=== PATIENT | male | born 1995 | race African-American/Black ===

== ENCOUNTER 2019-01-26 21:00 | Emergency (ER) | payer BC, OTHER ==
[~2019-01-26] VITALS: Ht 180.3 cm; Wt 86.2 kg
[2019-01-26 21:19] VITALS: BP 147/81
== END 2019-01-26 23:40 | disposition home or self-care (01) ==
LOC: ER 21:03
DX: S83.92XA Sprain of unspecified site of left knee, initial encounter (principal); W23.0XXA Caught, crushed, jammed, or pinched between moving objects, initial encounter; Y93.89 Activity, other specified; Y99.8 Other external cause status; Y92.89 Other specified places as the place of occurrence of the external cause
CPT/HCPCS: 73562

== ENCOUNTER 2019-05-17 12:19 | Emergency (ER) | payer SELFPAY ==
[~2019-05-17] VITALS: Ht 152.4 cm; Wt 86.2 kg
[2019-05-17 12:51] VITALS: BP 139/66
[2019-05-17] MEDS ORDERED: KETOROLAC TROMETH 60MG/2ML VIAL IM ONE (16:00)
== END 2019-05-17 16:19 | disposition home or self-care (01) ==
LOC: ER 12:19
DX: S39.012A Strain of muscle, fascia and tendon of lower back, initial encounter (principal); V43.52XA Car driver injured in collision with other type car in traffic accident, initial encounter; Y93.89 Activity, other specified; Y99.8 Other external cause status; Y92.410 Unspecified street and highway as the place of occurrence of the external cause
CPT/HCPCS: 72100; 96372; 99283; J1885